=== PATIENT | female | born 1980 | race Caucasian/White ===

== ENCOUNTER 2021-07-07 15:20 | Emergency (ER) | payer OTHER ==
[~2021-07-07] VITALS: Ht 157.5 cm; Wt 55.3 kg
[2021-07-07] MEDS ORDERED: WELLBUTRIN 100100 MG PO (15:58)
[2021-07-07] MEDS ORDERED: IBUPROFEN 800800 M1 PO (16:00)
[2021-07-07] MEDS ORDERED: HYDROCODON-ACE1 EAC7 PO (16:00)
[2021-07-07] MEDS ORDERED: AUGMENTIN 875-1 EACH PO (16:00)
[2021-07-07 16:03] VITALS: BP 143/92
== END 2021-07-07 16:04 | disposition home or self-care (01) ==
LOC: M.ERS 15:20
DX: S00.412A Abrasion of left ear, initial encounter (principal); Z79.899 Other long term (current) drug therapy; X58.XXXA Exposure to other specified factors, initial encounter; Y93.89 Activity, other specified; Y92.89 Other specified places as the place of occurrence of the external cause; Y99.8 Other external cause status